=== PATIENT | male | born 1965 | race Caucasian/White ===

== ENCOUNTER 2018-11-26 09:24 | Emergency (ER) | payer SELFPAY ==
[~2018-11-26] VITALS: Ht 170.2 cm; Wt 77.0 kg
[2018-11-26] MEDS ORDERED: TETRACAINE 0.5% OPHTH DROPS 4ML RIGHTEYE ONE (10:15)
[2018-11-26] MEDS ORDERED: FLUORESCEIN SODIUM 1MG/STRIP RIGHTEYE ONE (10:15)
[2018-11-26] MEDS ORDERED: ACETAMINOPHEN 325MG TABLET PO ONE (10:15)
[2018-11-26] MEDS ORDERED: LIDOCAINE HCL/EPINEPHRINE 1%-EPI 1:100,000 20 ML VIAL INFIL ONE (10:15)
[2018-11-26] MEDS ORDERED: TETANUS, DIPHTHERIA, PERTUSSIS VAC/PF 0.5ML (>7YR OLD) IM ONE (10:15)
[2018-11-26] MEDS ORDERED: BACITRACIN ZINC OINT UDPKT TOP ONE (13:15)
[2018-11-26 13:17] VITALS: BP 125/77
== END 2018-11-26 13:21 | disposition home or self-care (01) ==
LOC: ER 09:24
DX: S09.8XXA Other specified injuries of head, initial encounter (principal); S01.111A Laceration without foreign body of right eyelid and periocular area, initial encounter; X99.9XXA Assault by unspecified sharp object, initial encounter; Y93.89 Activity, other specified; Y92.89 Other specified places as the place of occurrence of the external cause; Z23 Encounter for immunization
CPT/HCPCS: 12011; 70450; 70486; 90471; 90715; 99284; J3490; Z7610